=== PATIENT | male | born 1990 | race Caucasian/White ===

== ENCOUNTER 2017-12-03 03:29 | Emergency (ER) | payer BC ==
[~2017-12-03 03:29] MED LIST: ALPR-429 PO; CEPH500C24 PO; FLUO40CA76 PO; LOR5/325 PO; QUET25TA30 PO
[2017-12-03] MEDS ORDERED: TOPI-28 PO (03:43)
[2017-12-03] MEDS ORDERED: LEVO50TA86 PO (03:43)
[2017-12-03] MEDS ORDERED: TOPI50TA92 PO (03:43)
[2017-12-03] MEDS ORDERED: LAMO1000 (03:43)
[2017-12-03] MEDS ORDERED: ATOR40TA24 PO (03:43)
[2017-12-03] MEDS ORDERED: ARIP2TAB2 (03:43)
--- NOTE | 2017-12-03 03:45 | ER Report ---
History and Physical Time Seen By MD: 03:45 Hx. of Stated Complaint: BACK PAIN SINCE ABOUT 11PM. FEELS SIMILAR TO LAST KIDNEY STONE. UNABLE TO URINATE, DRINKING LOTS OF WATER HPI/ROS CHIEF COMPLAINT: abd and flank pain HISTORY OF PRESENT ILLNESS: This is a 27 year old male. He has been having left flank and lower back pain since about 2300 hours. Feels like past kidney stones. Difficulty urinating, difficult to go. Feels like he has to. Similar with bowels, feels the need to go but cannot. Nothing changes the pain. Rates 7- 8 on a 1-10 scale. No fever or chills. No shortness of breath. No chest pain. Allergies: Coded Allergies: acetaminophen (Unverified Allergy, Unknown, 12/03/17) oxycodone (Unverified Allergy, Unknown, 12/03/17) Home Meds Active Scripts Ondansetron (ZOFRAN ODT) 4 Mg Tab.rapdis, 4 MG PO Q6H Y for NAUSEA/VOMITING, # 20 TAB.IRAIDA 0 Refills Prov:KLAUDIA ALVARADO MD 12/03/17 Ketorolac Tromethamine (KETOROLAC TROMETHAMINE) 10 Mg Tab, 10 MG PO Q6H Y for PAIN, #12 TAB 0 Refills Prov:KLAUDIA ALVARADO MD 12/03/17 Hydrocodone Bit/Acetaminophen (HYDROCODON-ACETAMINOPHEN 5-325) 1 Each Tablet, 1 EACH PO Q4H Y for PAIN, #12 TAB 0 Refills Prov:KLAUDIA ALVARADO MD 12/03/17 Tamsulosin Hcl (FLOMAX) 0.4 Mg Cap.er.24h, 0.4 MG PO QDAY, #14 CAP 0 Refills Prov:KLAUDIA ALVARADO MD 12/03/17 Reported Medications Levothyroxine Sodium (LEVOTHYROXINE SODIUM) 50 Mcg Tablet, 50 MCG PO QDAY, TAB 12/03/17 Lamotrigine (Lamotrigine) 1,000 Gm Powder 12/03/17 Atorvastatin Calcium (LIPITOR) 40 Mg Tablet, 1 TAB PO QDAY, TAB 12/03/17 Aripiprazole (Aripiprazole) 2 Mg Tablet 12/03/17 Topiramate (TOPIRAMATE) 100 Mg Tablet, 100 MG PO BID 12/03/17 Topiramate (TOPIRAMATE) 50 Mg Tablet, 50 MG PO BID 12/03/17 Alprazolam (XANAX) 0.5 Mg Tablet, 1-2 TAB PO PRN Y for ANXIETY, TAB 10/10/14 Discontinued Reported Medications Quetiapine Fumarate (SEROQUEL) 25 Mg Tablet, 25 MG PO DAILY 10/10/14 Fluoxetine Hcl (PROZAC) 40 Mg Capsule, 40 MG PO QDAY, CAPSULE 10/10/14 Discontinued Scripts Cephalexin Monohydrate (CEPHALEXIN) 500 Mg Cap, 500 MG PO QID, #28 CAP TAKE 1 CAPSULE BY MOUTH EVERY SIX HOURS Prov:KELLY GOULD DO 10/10/14 Reviewed Nurses Notes: Yes Hx Smoking: No Smoking Status: Former Smoker Hx Substance Use Disorder: No Constitutional Vital Sign - Last 24 Hours 12/03/17 12/03/17 12/03/17 12/03/17 03:29 03:33 03:37 03:44 Temp 98.2 Pulse ??? 71 73 Resp 18 B/P (MAP) 147/108 147/108 (121) Pulse Ox 96 95 O2 Delivery Room Air 12/03/17 12/03/17 12/03/17 12/03/17 03:59 04:00 04:14 04:29 Pulse 72 75 66 B/P (MAP) 149/106 (120) Pulse Ox 94 87 89 12/03/17 12/03/17 04:30 04:44 Pulse 72 B/P (MAP) 144/96 (112) Pulse Ox 87 Physical Exam General Appearance: The patient is alert. Mild acute distress from pain. Eyes: Pupils are equal, round. No pallor, injection or icterus. ENT: Mucous membranes are moist. Normal oral mucosa. Posterior oropharynx is normal. Respiratory: Lungs are clear to auscultation. Cardiovascular: Regular rate and rhythm. No murmurs, gallops or rubs. Gastrointestinal: Abdomen is soft, non-tender to palpation. Has some left flank and low back pain. Nondistended. Normal active bowel sounds. Neurological: Alert and oriented x3. Skin: Warm and dry. No rashes. Musculoskeletal: No tenderness in palpation of the thoracic and lumbar spine. DIFFERENTIAL DIAGNOSIS: After history and physical exam, differential diagnosis was considered for flank pain including but not limited to musculoskeletal causes, kidney stone, pyelonephritis, shingles, and intra-abdominal causes such as diverticulitis and appendicitis. Medical Decision Making Data Points Result Diagram: 12/03/17 0339 12/03/17 0339 Laboratory Hematology Test 12/03/17 03:37 12/03/17 03:39 Urine Color Yellow Urine Clarity Clear Urine pH 6.0 pH (4.8-9.5) Urine Specific [place] 1.025 Urine Protein Negative mg/dL (NEGATIVE) Urine Glucose (UA) Negative mg/dL (NEGATIVE) Urine Ketones Negative mg/dL (NEGATIVE) Urine Blood Small (NEGATIVE) Urine Nitrite Negative (NEGATIVE) Urine Bilirubin Negative (NEGATIVE) Urine Urobilinogen 2.0 mg/dL (0.2-1.9) Urine Leukocyte Esterase Negative (NEGATIVE) Urine RBC 3 /HPF (0-2/HPF) Urine WBC 2 /HPF (0-5/HPF) Urine Squamous Epithelial Cells None /LPF (</=FEW) Urine Bacteria Negative /HPF (NONE-FEW) Urine Mucus Few /HPF (NONE-FEW) Red Blood Count 6.03 M/uL (4.00-5.60) Mean Corpuscular Volume 81.3 fL (80.0-96.0) Mean Corpuscular Hemoglobin 27.9 pg (26.0-33.0) Mean Corpuscular Hemoglobin Concent 34.3 g/dL (32.0-36.0) Red Cell Distribution Width 13.5 % (11.5-14.5) Mean Platelet Volume 8.9 fL (7.2-11.1) Neutrophils (%) (Auto) 74.7 % (39.4-72.5) Lymphocytes (%) (Auto) 17.0 % (17.6-49.6) Monocytes (%) (Auto) 7.5 % (4.1-12.4) Eosinophils (%) (Auto) 0.4 % (0.4-6.7) Basophils (%) (Auto) 0.4 % (0.3-1.4) Nucleated RBC Relative Count (auto) 0.1 /100WBC Neutrophils # (Auto) 8.7 K/uL (2.0-7.4) Lymphocytes # (Auto) 2.0 K/uL (1.3-3.6) Monocytes # (Auto) 0.9 K/uL (0.3-1.0) Eosinophils # (Auto) 0.0 K/uL (0.0-0.5) Basophils # (Auto) 0.0 K/uL (0.0-0.1) Nucleated RBC Absolute Count (auto) 0.01 K/uL Sodium Level 140 mmol/L (137-145) Potassium Level 4.1 mmol/L (3.5-5.0) Chloride Level 105 mmol/L (98-107) Carbon Dioxide Level 23 mmol/L (22-30) Blood Urea Nitrogen 21 mg/dl (9-21) Creatinine 1.60 mg/dl (0.66-1.25) Glomerular Filtration Rate Calc 52.1 Random Glucose 137 mg/dl (75-110) Calcium Level 9.5 mg/dl (8.4-10.2) Total Bilirubin 0.3 mg/dl (0.2-1.3) Aspartate Amino Transf (AST/SGOT) 29 U/L (0-35) Alanine Aminotransferase (ALT/SGPT) 58 U/L (0-56) Alkaline Phosphatase 53 U/L (0-126) Total Protein 7.3 g/dl (6.3-8.2) Albumin 4.4 g/dl (3.5-5.0) Chemistry Test 12/03/17 03:37 12/03/17 03:39 Urine Color Yellow Urine Clarity Clear Urine pH 6.0 pH (4.8-9.5) Urine Specific [place] 1.025 Urine Protein Negative mg/dL (NEGATIVE) Urine Glucose (UA) Negative mg/dL (NEGATIVE) Urine Ketones Negative mg/dL (NEGATIVE) Urine Blood Small (NEGATIVE) Urine Nitrite Negative (NEGATIVE) Urine Bilirubin Negative (NEGATIVE) Urine Urobilinogen 2.0 mg/dL (0.2-1.9) Urine Leukocyte Esterase Negative (NEGATIVE) Urine RBC 3 /HPF (0-2/HPF) Urine WBC 2 /HPF (0-5/HPF) Urine Squamous Epithelial Cells None /LPF (</=FEW) Urine Bacteria Negative /HPF (NONE-FEW) Urine Mucus Few /HPF (NONE-FEW) White Blood Count 11.6 k/uL (4.5-11.0) Red Blood Count 6.03 M/uL (4.00-5.60) Hemoglobin 16.8 g/dL (14.0-18.0) Hematocrit 49.0 % (42.0-52.0) Mean Corpuscular Volume 81.3 fL (80.0-96.0) Mean Corpuscular Hemoglobin 27.9 pg (26.0-33.0) Mean Corpuscular Hemoglobin Concent 34.3 g/dL (32.0-36.0) Red Cell Distribution Width 13.5 % (11.5-14.5) Platelet Count 234 K/uL (150-450) Mean Platelet Volume 8.9 fL (7.2-11.1) Neutrophils (%) (Auto) 74.7 % (39.4-72.5) Lymphocytes (%) (Auto) 17.0 % (17.6-49.6) Monocytes (%) (Auto) 7.5 % (4.1-12.4) Eosinophils (%) (Auto) 0.4 % (0.4-6.7) Basophils (%) (Auto) 0.4 % (0.3-1.4) Nucleated RBC Relative Count (auto) 0.1 /100WBC Neutrophils # (Auto) 8.7 K/uL (2.0-7.4) Lymphocytes # (Auto) 2.0 K/uL (1.3-3.6) Monocytes # (Auto) 0.9 K/uL (0.3-1.0) Eosinophils # (Auto) 0.0 K/uL (0.0-0.5) Basophils # (Auto) 0.0 K/uL (0.0-0.1) Nucleated RBC Absolute Count (auto) 0.01 K/uL Glomerular Filtration Rate Calc 52.1 Calcium Level 9.5 mg/dl (8.4-10.2) Total Bilirubin 0.3 mg/dl (0.2-1.3) Aspartate Amino Transf (AST/SGOT) 29 U/L (0-35) Alanine Aminotransferase (ALT/SGPT) 58 U/L (0-56) Alkaline Phosphatase 53 U/L (0-126) Total Protein 7.3 g/dl (6.3-8.2) Albumin 4.4 g/dl (3.5-5.0) Urinalysis Test 12/03/17 03:37 Urine Color Yellow Urine Clarity Clear Urine pH 6.0 pH (4.8-9.5) Urine Specific [place] 1.025 Urine Protein Negative mg/dL (NEGATIVE) Urine Glucose (UA) Negative mg/dL (NEGATIVE) Urine Ketones Negative mg/dL (NEGATIVE) Urine Blood Small (NEGATIVE) Urine Nitrite Negative (NEGATIVE) Urine Bilirubin Negative (NEGATIVE) Urine Urobilinogen 2.0 mg/dL (0.2-1.9) Urine Leukocyte Esterase Negative (NEGATIVE) Urine RBC 3 /HPF (0-2/HPF) Urine WBC 2 /HPF (0-5/HPF) Urine Squamous Epithelial Cells None /LPF (</=FEW) Urine Bacteria Negative /HPF (NONE-FEW) Urine Mucus Few /HPF (NONE-FEW) ED Course/Re-evaluation Clinical Indication for ER IV: Hydration, IV Access ED Course Discussion with the patient regarding treatment options this morning. Because he has a known history of stones, we could do labs and treat symptoms and see how he does, or could do a CT scan. We decided to just treat. He did well. Has mild renal insufficiency. Offered CT scan, but the patient would like to wait as he does feel better. Gave prescriptions for symptomatic treatment and if not improving, or if worsening, will return for re-evaluation. Decision to Disposition Date: Dec 03, 2017 Decision to Disposition Time: 05:34 Depart Departure Latest Vital Signs Vital Signs Date Time Temp Pulse Resp B/P (MAP) Pulse Ox O2 Delivery O2 Flow Rate FiO2 12/03/17 04:44 72 87 12/03/17 04:30 144/96 (112) 12/03/17 03:33 98.2 18 Room Air Impression: Primary Impression: Kidney stone on left side Condition: Improved Disposition: HOME OR SELF-CARE New Scripts Ondansetron (ZOFRAN ODT) 4 Mg Tab.rapdis 4 MG PO Q6H Y for NAUSEA/VOMITING, #20 TAB.IRAIDA 0 Refills Prov: KLAUDIA ALVARADO MD 12/03/17 Ketorolac Tromethamine (KETOROLAC TROMETHAMINE) 10 Mg Tab 10 MG PO Q6H Y for PAIN, #12 TAB 0 Refills Prov: KLAUDIA ALVARADO MD 12/03/17 Hydrocodone Bit/Acetaminophen (HYDROCODON-ACETAMINOPHEN 5-325) 1 Each Tablet 1 EACH PO Q4H Y for PAIN, #12 TAB 0 Refills Prov: KLAUDIA ALVARADO MD 12/03/17 Tamsulosin Hcl (FLOMAX) 0.4 Mg Cap.er.24h 0.4 MG PO QDAY, #14 CAP 0 Refills Prov: KLAUDIA ALVARADO MD 12/03/17 Patient Instructions: Kidney Stones (ED) Additional Instructions: Rest and increase fluid intake. For pain you can use: Toradol 10mg, one every 6 hours as needed for pain. Lortab 5/325, take 1-2 every 4 hours as needed for pain. For Nausea: Zofran 4mg, one every 4-6 hours as needed for nausea. To help the stone to pass and to help decrease swelling and pain in the urinary system after the stone passes, we recommend using Flomax 0.4mg one daily for the next couple of weeks. KLAUDIA ALVARADO MD Dec 03, 2017 03:45
[2017-12-03] MEDS ORDERED: MORPHINE 4 MG/ML SDV IVP ONE (03:50)
[2017-12-03] MEDS ORDERED: TAMSULOSIN HCL 0.4 MG CAP PO ONE (03:50)
[2017-12-03] MEDS ORDERED: KETOROLAC 30 MG/ML VIAL IVP ONE (03:50)
[2017-12-03] MEDS ORDERED: ONDANSETRON 4 MG/2 ML VIAL IVP ONE (03:50)
[2017-12-03] MEDS ORDERED: NS(*) 0.9% 1000 ML BAG 1,000 ML IV ONE (03:50)
[2017-12-03 04:09] LABS: PLATELET COUNT, AUTOMATED 234 K/uL (150-450)
[2017-12-03 04:30] VITALS: BP 144/96
[2017-12-03] MEDS ORDERED: KETOROLAC TROM 10 MG TAB TH PO ONE (05:35)
[2017-12-03] MEDS ORDERED: ACET/HYDROC 5/325MG TH ER ONLY 2 TAB/BOTTLE PO ONE (05:35)
[2017-12-03] MEDS ORDERED: ONDANSETRON 4 MG ODT TH SL ONE (05:35)
[2017-12-03] MEDS ORDERED: ONDA4TAB PO (05:36)
[2017-12-03] MEDS ORDERED: TAMS0.4C25 PO (05:36)
[2017-12-03] MEDS ORDERED: LOR5/325 PO (05:36)
[2017-12-03] MEDS ORDERED: KET10 PO (05:36)
== END 2017-12-03 05:46 | disposition home or self-care (01) ==
LOC: ER 03:30
DX: N20.0 Calculus of kidney (principal)
CPT/HCPCS: 81001; 85025; 96361; 96374; 96375; 99284; J1885; J2270; J2405; J7030; 82040; 82247; 82310; 82374; 82435; 82565; 82947; 84075; 84132; 84155; 84295; 84450; 84460; 84520

== ENCOUNTER 2018-10-12 10:24 | Emergency (ER) | payer SELFPAY ==
[~2018-10-12 10:24] MED LIST changes: +ARIP2TAB2; +ATOR40TA24 PO; +KET10 PO; +LAMO1000; +LEVO50TA86 PO; +ONDA4TAB PO; +TAMS0.4C25 PO; +TOPI-28 PO; +TOPI50TA92 PO
[2018-10-12 10:34] VITALS: BP 123/94
[2018-10-12] MEDS ORDERED: LAMO100T56 PO (10:38)
--- NOTE | 2018-10-12 11:09 | ER Report ---
History and Physical Time Seen By MD: 11:04 Hx. of Stated Complaint: WT [place]. FELL WHILE DANCING AND ROLLED LEFT ANKLE. MOC PLACED PATIENT IN LEG BOOT BEFORE COMING HPI/ROS CHIEF COMPLAINT: right ankle and foot pain HISTORY OF PRESENT ILLNESS: 28 year old male presents to the ED after twisting his ankle last night at a wedding. Patient reports he was dancing when he twisted his left ankle and fell on his right elbow and right hip. Denies pain in right elbow and hip, however has pain in the midfoot of the left foot. Reports he continued to dance after his injury, however, he woke up this morning and could not bear weight. Reports pain was a 7 out of 10 at that time, located at the midfoot, circumstantially around the ankle, and on the arch of his foot. He took 600mg of ibuprofen, and the pain came down to a 3 out of 10. Reports he has full sensation in his toes. REVIEW OF SYSTEMS: Respiratory: No cough, no dyspnea. Cardiovascular: No chest pain, no palpitations. Gastrointestinal: No vomiting, no abdominal pain. Musculoskeletal: Right foot pain as described above. No back pain. Allergies: Coded Allergies: acetaminophen (Unverified Allergy, Unknown, 10/12/18) oxycodone (Unverified Allergy, Unknown, 10/12/18) Home Meds Active Scripts Ketorolac Tromethamine (KETOROLAC TROMETHAMINE) 10 Mg Tab, 10 MG PO Q6H PRN for PAIN for 5 Days, #20 TAB Prov:DESTINY JOYCE HOSPICE RN 10/12/18 Reported Medications Lamotrigine (LAMICTAL) 100 Mg Tablet, 100 MG PO 10/12/18 Levothyroxine Sodium (LEVOTHYROXINE SODIUM) 50 Mcg Tablet, 50 MCG PO QDAY, TAB 12/03/17 Atorvastatin Calcium (LIPITOR) 40 Mg Tablet, 1 TAB PO QDAY, TAB 12/03/17 Alprazolam (XANAX) 0.5 Mg Tablet, 1-2 TAB PO PRN PRN for ANXIETY, TAB 10/10/14 Discontinued Reported Medications Lamotrigine (Lamotrigine) 1,000 Gm Powder 12/03/17 Aripiprazole (Aripiprazole) 2 Mg Tablet 12/03/17 Topiramate (TOPIRAMATE) 100 Mg Tablet, 100 MG PO BID 12/03/17 Topiramate (TOPIRAMATE) 50 Mg Tablet, 50 MG PO BID 12/03/17 Discontinued Scripts Ondansetron (ZOFRAN ODT) 4 Mg Tab.rapdis, 4 MG PO Q6H PRN for NAUSEA/VOMITING, #20 TAB.IRAIDA 0 Refills Prov:KLAUDIA ALVARADO MD 12/03/17 Ketorolac Tromethamine (KETOROLAC TROMETHAMINE) 10 Mg Tab, 10 MG PO Q6H PRN for PAIN, #12 TAB 0 Refills Prov:KLAUDIA ALVARADO MD 12/03/17 Hydrocodone Bit/Acetaminophen (HYDROCODON-ACETAMINOPHEN 5-325) 1 Each Tablet, 1 EACH PO Q4H PRN for PAIN, #12 TAB 0 Refills Prov:KLAUDIA ALVARADO MD 12/03/17 Tamsulosin Hcl (FLOMAX) 0.4 Mg Cap.er.24h, 0.4 MG PO QDAY, #14 CAP 0 Refills Prov:KLAUDIA ALVARADO MD 12/03/17 Past Medical/Surgical History Patient has a past medical history of migraines, hyperlipidemia, hypothyroidism, depression, anxiety. Patient has a surgical history of left shoulder surgery. Reviewed Nurses Notes: Yes Hx Smoking: No Smoking Status: Former Smoker Hx Substance Use Disorder: No Constitutional Vital Sign - Last 24 Hours 10/12/18 10:34 Temp 98.1 Pulse 103 Resp 20 B/P (MAP) 123/94 Pulse Ox 93 O2 Delivery Room Air Physical Exam General Appearance: The patient is alert, has no immediate need for airway protection and no current signs of toxicity. Eyes: Pupils equal and round no injection. Respiratory: Chest is non tender, lungs are clear to auscultation. Cardiac: regular rate and rhythm Gastrointestinal: Abdomen is soft and non tender, no masses, bowel sounds normal. Musculoskeletal: Neck: Neck is supple and non tender. Extremities: No ROM of left ankle. Minimal extension and flexion of toes 2-5, no ROM of big toe. On palpation, no pain at the posterior aspect of the medial and lateral maleoli. Does have tenderness with palpation of the medial and lateraal aspects of the mid-foot. No pain with palpation of the calcaneus or achilles. Skin: No rashes or lesions. DIFFERENTIAL DIAGNOSIS: After history and physical exam differential diagnosis was considered for Ankle sprain, foot sprain, fracture of foot, fracture of ankle. Medical Decision Making EKG/Imaging Imaging PATIENT NAME: Tim Garcia : 1990 MR: [id number] V: [id number] EXAM DATE: ORDERING PHYSICIAN: PASCUAL NORTON TECHNOLOGIST: [place] [facility] [place] : 1990 Visit/Account:[id number] Date of Sevice: 10/12/2018 ANKLE 3 VIEW MIN LEFT, FOOT 3 VIEW LEFT Indication: Pain after injury Comparison: None Available Findings: No evidence of fracture, dislocation, or acute osseous abnormality of the left ankle and foot. The ankle mortise is symmetric. There is no significant ankle joint effusion. Enthesopathic changes are noted along the dorsum of the talar neck No evidence of radiopaque foreign body. IMPRESSION: 1. No acute osseous abnormality of the left ankle and foot ANKLE 3 VIEW MIN LEFT, FOOT 3 VIEW LEFT Indication: Pain after injury Comparison: None Available Findings: No evidence of fracture, dislocation, or acute osseous abnormality of the left ankle and foot. The ankle mortise is symmetric. There is no significant ankle joint effusion. Enthesopathic changes are noted along the dorsum of the talar neck No evidence of radiopaque foreign body. IMPRESSION: 1. No acute osseous abnormality of the left ankle and foot ED Course/Re-evaluation ED Course Upon arrival to the ED patient admitted to an exam room, hx and physical obtained, differentials considered. Patient presents to the ED after twisting his ankle last night at a wedding. Patient reports he was dancing when he twisted his left ankle and fell on his right elbow and right hip. Denies pain in right elbow and hip, however has pain in the midfoot of the left foot. Reports he continued to dance after his injury, however, he woke up this morning and could not bear weight. Reports pain was a 7 out of 10 at that time, located at the midfoot, circumstantially around the ankle, and on the arch of his foot. Reports he has full sensation in his toes. On palpation, no pain at the posterior aspect of the medial and lateral maleoli. Does have tenderness with palpation of the medial and lateraal aspects of the mid-foot. No pain with palpation of the calcaneus or achilles. Not able to bear weight at this time. Ankle and foot x-ray ordered. No acute osseous abnormality of the left ankle and foot noted on x-ray. Dr. Mike consulted about x-ray. He also does not see any abnormality to the x-ray. However, he would like to see patient at his clinic for follow-up. Patient to be discharged home in a boot and crutches. He is to use crutches and boot until he feels comfortable walking on his foot. Patient has a trip planed for [place], and once he gets back, he is to follow-up with Dr. Mike. Patient agrees with plan of care. Decision to Disposition Date: Oct 12, 2018 Decision to Disposition Time: 12:07 Depart Departure Latest Vital Signs Vital Signs Date Time Temp Pulse Resp B/P (MAP) Pulse Ox O2 Delivery O2 Flow Rate FiO2 10/12/18 10:34 98.1 103 20 123/94 93 Room Air Impression: Primary Impression: Foot sprain Condition: Condition Unchanged Disposition: HOME OR SELF-CARE Referrals: LOTTIE MIKE MD New Scripts Ketorolac Tromethamine (KETOROLAC TROMETHAMINE) 10 Mg Tab 10 MG PO Q6H PRN for PAIN for 5 Days, #20 TAB Prov: DESTINY JOYCE JUAN 10/12/18 Departure Forms: Medications Reconciliation, Patient Portal Information, ER Transition Record Patient Instructions: Foot Sprain (ED) Additional Instructions: Please drink plenty of water and get plenty of rest. You may take toradol every 4-6 hours as needed for pain. Please follow-up with Dr. Mike at [facility] once you get back form [place]. Wear your boot and use your crutches until you feel that you can bear weight on your foot. Rest, ice, use DELON wrap, and elevate your foot. Please return to the ED with increased pain, fevers, or for any other concerns. HE[employer] EQUIPMENT SUPERVISOR/PA consult with MD: Verbally MD Consult Note: Dr. Mike consulted about x-ray. He stated there was no acute fracture, but he would like to see him in his office once he gets back from [place]. Problem Qualifiers Primary Impression: Foot sprain Encounter type: initial encounter Laterality: left Qualified Codes: S93.602A - Unspecified sprain of left foot, initial encounter DESTINY JOYCE Oct 12, 2018 11:09
--- NOTE | 2018-10-12 11:38 | RADIOLOGY IMAGING REPORT ---
FACILITY: [facility] PATIENT NAME: Tim Garcia : 1990 MR: [id number] V: [id number] EXAM DATE: ORDERING PHYSICIAN: PASCUAL NORTON TECHNOLOGIST: Location: [facility] - [place] Patient: Tim Garcia : 1990 Visit/Account:[id number] Date of Sevice: 10/12/2018 ANKLE 3 VIEW MIN LEFT, FOOT 3 VIEW LEFT Indication: Pain after injury Comparison: None Available Findings: No evidence of fracture, dislocation, or acute osseous abnormality of the left ankle and foot. The ankle mortise is symmetric. There is no significant ankle joint effusion. Enthesopathic changes are noted along the dorsum of the talar neck No evidence of radiopaque foreign body. IMPRESSION: 1. No acute osseous abnormality of the left ankle and foot Report Dictated By: Jabier Olivera at 10/12/2018 11:28 AM Report E-Signed By: Jabier Olivera at 10/12/2018 11:30 AM WSN:[id number]
--- NOTE | 2018-10-12 11:38 | RADIOLOGY IMAGING REPORT ---
FACILITY: [facility] PATIENT NAME: Tim Garcia : 1990 MR: [id number] V: [id number] EXAM DATE: ORDERING PHYSICIAN: PASCUAL NORTON TECHNOLOGIST: Location: [facility] Patient: Tim Garcia : 1990 Visit/Account:[id number] Date of Sevice: 10/12/2018 ANKLE 3 VIEW MIN LEFT, FOOT 3 VIEW LEFT Indication: Pain after injury Comparison: None Available Findings: No evidence of fracture, dislocation, or acute osseous abnormality of the left ankle and foot. The ankle mortise is symmetric. There is no significant ankle joint effusion. Enthesopathic changes are noted along the dorsum of the talar neck No evidence of radiopaque foreign body. IMPRESSION: 1. No acute osseous abnormality of the left ankle and foot Report Dictated By: Jabier Olivera at 10/12/2018 11:28 AM Report E-Signed By: Jabier Olivera at 10/12/2018 11:30 AM WSN:[id number]
[2018-10-12] MEDS ORDERED: KET10 PO (12:06)
== END 2018-10-12 12:20 | disposition home or self-care (01) ==
LOC: ER 11:10
DX: S93.602A Unspecified sprain of left foot, initial encounter (principal)
CPT/HCPCS: 99284